=== PATIENT | female | born 1985 | race Caucasian/White ===

== ENCOUNTER 2020-11-17 10:26 | Outpatient (REF) | payer BC, SELFPAY ==
--- NOTE | 2020-11-18 12:18 | MHC.AU.P13 ---
Adult Audiological Evaluation Date of Visit: 11/17/20 Supervisor Lime Used: Not Applicable Reason for Appointment: Audiologic re-evaluation to determine possible change in hearing ability. Question of problem with hearing aids vs. decreased hearing. Current wax guard rings for both hearing aids are coming off. Previous Hearing Test Results: 07/10/2019 [facility] Asymmetric borderline normal hearing at 250 Hz dropping to profound high frequency sensorineural hearing loss with the right ear being poorer than the left. Speech understanding was 64% for the right ear and 84% for the left ear. Ear History: History of Hearing Loss since childhood Medical History: Medical History: Unremarkable Medical History Hearing Instrument History- Right Ear: Adult Care Manager: Phonak Model: Virto V 90-10 canal Serial Number: [id number] Battery Size: 10 Repair Warranty: Loss and Damage Warranty: Dispensed By: [facility] Date of Fittin09/07/2015 Hearing Instrument History- Left Ear: Adult Care Manager: Phonak Model: Virto V 90-10 canal Serial Number: [id number] Battery Size: 10 Warranty: Loss and Damage Warranty: Dispensed By: [facility] Date of Fittin09/07/2015 Otoscopy: Right Ear: Unremarkable Left Ear: Unremarkable Tympanometry: Right Ear: Not performed at today's visit Left Ear: Not performed at today's visit Hearing Evaluation: Transducer(s) Used: Insert Earphones Bone Conduction Method: Conventional Audiometry Stimuli Used: Pure Tones Right Ear: Description of Hearing: Borderline normal at 250 Hz precipitously dropping to a profound high frequency sensorineural hearing loss Left Ear: Description of Hearing: Normal hearing threshold at 250 Hz dropping to a profound high frequency sensorineural hearing loss Speech Recognition Threshold (SRT): Method Used: Monitored Live Voice Stimuli Used: Spondee Words Right Ear: 30 dB HL Left Ear: 30 dB HL Word Discrimination: Method: Recorded Lists Word Lists Used: NU-6 Right Ear: 36% at 75 dB HL (most comfortable listening level) 68% at 80 dB HL. Left Ear: 80% at 70 dB HL Most Comfortable Level (MCL): Right Ear: 75 dB HL Left Ear: 70 dB HL Comparison: Compared to most recent evaluation: Left ear thresholds are stable with the right ear levels showing a 10 dB decrease at 1030-0039 Hz Recommendations: Audiological re-evaluation in one year. Trial with new amplification is recommended. Medical clearance from a physician is required before fitting. Patient plans to contact [facility]. See Hearing Aid Follow-Up note for more information. 1) Hearing aids were reprogrammed to today's test results with Dayan noting improved sound quality while in office. 2) Given the gradually decreasing speech understanding, particularly for the right ear, recommend Dayan contact the [facility] ([facility]) and reapply for services for new hearing aids. A quote will be sent [facility]. Diagnosis: Primary Diagnosis: H90.3 Bilateral Sensorineural Hearing Loss Services Performed: Comprehensive Audiological Evaluation (CPT 52529) Signature: Provider: Syed Murillo, CCC-A
--- NOTE | 2020-11-18 12:21 | MHC.AU.MED ---
Medical Clearance for Hearing Instrumentation Date: 11/18/20 Patient Name: Dayan Martinez Date of : 1985 Primary Care Provider: Referring Provider: Shree Loyola We have seen your patient on 11/18/20 and have determined that they are a candidate for amplification (See accompanying report). Specifically, they would benefit from: Hearing aid use in both ears There is a statute that addresses Medical Evaluation Requirements prior to fitting a patient with a hearing aid. According to [place] statute [facility] CMR:6.03(1), (a) General. Except as provided in 265 CMR 6.03(1)(b), a disability hearing officer shall not sell a hearing aid unless the prospective user has presented to the disability hearing officer a written statement signed by a licensed physician that states that the patient's hearing loss has been medically evaluated and the patient may be considered a candidate for a hearing aid. The medical evaluation must have taken place within the preceding six months. Please note: Due to the [place] Statute referenced above, we cannot accept a signature other than that of a licensed physician. CAFETERIA COUNTER ATTENDANT and PA signatures cannot be accepted. I am in agreement with the above recommendation. There is no medical contraindication for hearing instrumentation. Physician Signature Date Physician Name (Printed)
--- NOTE | 2020-11-18 12:28 | MHC.AU.P13 ---
Hearing Instrument Follow-Up- Binaural Date of Visit: 11/17/20 Production Solderer Used: Not Applicable Right Ear: Excavation Laborer: Phonak Model: Virto V 90-10 canal Serial Number: [id number] Repair Warranty: Loss and Damage Warranty: Battery Size: 10 Color: pink Type of Wax Guard: CeruStop Left Ear: Excavation Laborer: Phonak Model: Virto V 90-10 canal Serial Number: [id number] RepairWarranty: Loss and Damage Warranty: Battery Size: 10 Color: pink Type of Wax Guard: CeruStop Follow-Up Summary: Hearing aids cleaned. Wax guard rings on both aids come off every time patient changes guards. Will stay on without falling out and into patient's ears. Cleaned receivers and microphones and placed new wax guards. Both amplifying well. Decided not to send aids in for repair as patient will contact [facility] to see if eligible for new aids. Reprogrammed both aids to today's test results with patient reporting improved sound quality while in office. Took impressions of both ears without complication. In HOLD drawer. Discussed hearing aid options and will send quote to [facility] for binaural Roderick Jarvis 1600 ITC-Rrechargeable. Patient will contact office after contacting [facility]. Recommendations: Recommendations: Hearing instrument follow-up or maintenance as needed. Please contact our clinic with any questions or concerns. Diagnosis Code(s): Primary Diagnosis: H90.3 Bilateral Sensorineural Hearing Loss Services Performed: [facility] Non-Quantity Charges: HANC: NonBillable Event Signature: Provider: Syed Murillo, CCC-A
== END 2020-11-17 10:27 | disposition home or self-care (01) ==
LOC: HO.SH 10:26
PROVIDERS: Visit Provider Hospitalist
DX: H90.3 Sensorineural hearing loss, bilateral (principal)
CPT/HCPCS: 92557

== ENCOUNTER 2021-07-04 11:17 | Outpatient (REF) | payer SELFPAY | END 2021-07-04 11:18 | disposition home or self-care (01) | LOC: HO.HAP 11:17 | PROVIDERS: Visit Provider Hospitalist | DX: Z13.89 Encounter for screening for other disorder (principal) ==

== ENCOUNTER 2021-12-19 09:31 | Outpatient (REF) | payer BC, SELFPAY ==
--- NOTE | 2021-12-19 14:22 | MHC.AU.AHA ---
Adult Audiological Evaluation Date of Visit: 12/19/21 Reason for Appointment: Dayan was seen for an annual audiological re-evaluation to monitor the status of her hearing loss. She reports no perceived change in hearing or general change in medical history. She stated that she changes the wax guards on the devices monthly, however, she was unable to change the left was guard recently due to it being stuck in the hearing aid. The patient stated she enjoys the sound quality and fit of the devices, and she especially enjoys using the hearing aids on the telephone. Previous Hearing [place] [facility] [place] Normal hearing for both ears at 250 Hz dropping to an asymmetric severe to profound high frequency sensorineural hearing loss with the right ear being 10-25 dB poorer than the left at 500-6000 Hz. Medical History: Medical History: Unremarkable Medical History Hearing Instrument History- Right Ear: Spindle Tester: CloudTran Model: Nimble Storage 1600 ITC-R Serial Number: [id number] Battery Size: Rechargeable Repair Warranty: 06/26/2024 Loss and Damage Warranty: 06/26/2024 Dispensed By: [facility] Date of Fittin06/07/2021 Hearing Instrument History- Left Ear: Spindle Tester: CloudTran Model: Nimble Storage 1600 ITC-R Serial Number: [id number] Battery Size: Rechargeable Warranty: 06/26/2024 Loss and Damage Warranty: 06/26/2024 Dispensed By: [facility] Date of Fittin06/07/2021 Otoscopy: Right Ear: Unremarkable Left Ear: Unremarkable Tympanometry: Tympanometry performed due to: To assess integrity of the middle ear system Right Ear: Normal Middle Ear System (Type A) Left Ear: Hypercompliant Middle Ear System (Type Ad) Hearing Evaluation: Transducer(s) Used: Insert Earphones, Bone Conduction Method: Conventional Audiometry Stimuli Used: Pure Tones Right Ear: Description of Hearing: Normal hearing at 250 Hz sloping to a mild to profound sensorineural hearing loss through 8000 Hz. A 15 dB HL asymetry is noted at 500, 1500, and 2000 Hz, with the right ear worse than the left. Left Ear: Description of Hearing: Normal hearing at 250 Hz sloping to a mild to profound sensorineural hearing loss through 8000 Hz. Speech Recognition Threshold (SRT): Method Used: Monitored Live Voice Stimuli Used: Spondee Words Right Ear: 35 dB HL Left Ear: 25 dB HL Word Discrimination: Method: Monitored Live Voice Word Lists Used: NU-6 Right Ear: 64% at 85 dB HL Left Ear: 80% at 80 dB HL Comparison: Compared to the most recent evaluation: Hearing is stable. Compared to most recent evaluation: Known asymmetrical thresholds and word recognition has remained stable from previous testing.\ Recommendations: Patient should return in one year for a re-evaluation to monitor the status of her hearing loss. Patient should continue consistent use of amplification and return as needed for hearing aid maintenance. Hearing aids were cleaned and biologic listening check revealed the devices were in good working order. Diagnosis: Primary Diagnosis: H90.3 Bilateral Sensorineural Hearing Loss Services Performed: Comprehensive Audiological Evaluation (CPT 57149) Tympanometry (CPT 33052) Signature: Student/Clinical Fellow: Yes: Dayan Mittal B.A., Syed Hand Former I have reviewed/agreed with student/fellow documentation: Yes Provider: Syed Grey, [facility]
== END 2021-12-19 09:32 | disposition home or self-care (01) ==
LOC: HO.SH 09:31
PROVIDERS: Visit Provider Nurse Practitioner Family
DX: Z01.118 Encounter for examination of ears and hearing with other abnormal findings (principal); H90.3 Sensorineural hearing loss, bilateral
CPT/HCPCS: 92557; 92567

== ENCOUNTER 2023-04-08 08:24 | Outpatient (REF) | payer BC, SELFPAY | END 2023-04-08 08:25 | disposition home or self-care (01) | LOC: HO.SH 08:24 | PROVIDERS: Visit Provider Nurse Practitioner Family | DX: Z01.118 Encounter for examination of ears and hearing with other abnormal findings (principal); H90.3 Sensorineural hearing loss, bilateral | CPT/HCPCS: 92557; 92567 ==

== ENCOUNTER 2023-10-23 08:25 | Outpatient (REF) | payer SELFPAY ==
--- NOTE | 2023-10-23 10:08 | MHC.AU.HA3 ---
Hearing Instrument Follow-Up- Binaural Date of Visit: 10/23/23 Right Ear: Osmany, Model, Color, Serial Number: Roderick Conley 1600 ITC-R #[id number] Radio Message Router Repair Warranty: 06/26/2024 Radio Message Router Loss and Damage Warranty: 06/26/2024 [facility] Service Plan: 06/26/2024 Battery Size: Rechargeable Storage Manager/Slim Tube: Earmold/Dome/CShell/SlimTip: Type of Wax Guard: Hear Clear Dispensed By: [facility] Date of Fittin06/07/2021 Left Ear: Osmany, Model, Color, Serial Number: Roderick Conley 1600 ITC-R #[id number] Radio Message Router Repair Warranty: 06/26/2024 Radio Message Router Loss and Damage Warranty: 06/26/2024 [facility] Service Plan: 06/26/2024 Battery Size: Rechargeable Storage Manager/Slim Tube: Earmold/Dome/CShell/SlimTip: Type of Wax Guard: Hear Clear Dispensed By: [facility] Date of Fittin06/07/2021 Follow-Up Summary: Reports the right hearing aid does not charge fully overnight and drains rapidly throughout the day. Cleaned and checked both aids, listening check positive. Checked settings and found left to be charged at 96% and the right at 63%, after one hour of wear per patient. Advised that right should be sent to ssrs developer for repair. Patient leaves with her left aid today, reports she will wear an old aid as back up on the right in the meantime. Recommendations: Recommendations: Patient to be called when aid is back from repair. Diagnosis Code(s): Primary Diagnosis: H90.3 Bilateral Sensorineural Hearing Loss Signature: Provider: Victorino Lugo, CCC-A
== END 2023-10-23 08:26 | disposition home or self-care (01) ==
LOC: HO.HAP 08:25
PROVIDERS: Visit Provider Hospitalist
DX: Z13.89 Encounter for screening for other disorder (principal)

== ENCOUNTER 2023-11-06 12:39 | Outpatient (REF) | payer SELFPAY | END 2023-11-06 12:40 | disposition home or self-care (01) | LOC: HO.HAP 12:39 | PROVIDERS: Visit Provider Hospitalist | DX: Z13.89 Encounter for screening for other disorder (principal) ==

== ENCOUNTER 2024-09-07 09:31 | Outpatient (REF) | payer SELFPAY ==
--- NOTE | 2024-09-07 16:03 | MHC.AU.HA3 ---
Hearing Instrument Follow-Up- Binaural Date of Visit: 09/07/24 Right Ear: Osmany, , Color, Serial Number: Roderick Conley 1600 ITC-R #[id number] Lye Treater Repair Warranty: 06/26/2024 Lye Treater Loss and Damage Warranty: 06/26/2024 [facility] Service Plan: 06/26/2024 Battery Size: Rechargeable Gun Striper/Slim Tube: Earmold/Dome/CShell/SlimTip: Type of Wax Guard: Hear Clear Dispensed By: [facility] Date of Fittin06/07/2021 Left Ear: Osmany, Model, Color, Serial Number: Roderick Conley 1600 ITC-R #[id number] Lye Treater Repair Warranty: 06/26/2024 Lye Treater Loss and Damage Warranty: 06/26/2024 [facility] Service Plan: 06/26/2024 Battery Size: Rechargeable Gun Striper/Slim Tube: Earmold/Dome/CShell/SlimTip: Type of Wax Guard: Hear Clear Dispensed By: [facility] Date of Fittin06/07/2021 Follow-Up Summary: Both aids and chair pad maker dropped off. Complaint of right not working, left not holding charge. Cleaned aids. Wax noted in both wax guards. Replaced wax guard and angélica covers. Listening check positive Right. Put aids on chair pad maker and left never fully charged. Spoke w/ Dayan who reports it only lasts about an hour after charging over night. Sending left to [facility] quote $330. Pt. to worm picker right aid and chair pad maker to have while waiting on left. Recommendations: Recommendations: Patient will be contacted when materials have arrived. Diagnosis Code(s): Primary Diagnosis: H90.3 Bilateral Sensorineural Hearing Loss Signature: Provider: Victorino Liu, [facility]
== END 2024-09-07 09:32 | disposition home or self-care (01) ==
LOC: HO.HAP 09:31
PROVIDERS: Visit Provider Hospitalist
DX: Z13.89 Encounter for screening for other disorder (principal)

== ENCOUNTER 2024-09-11 09:05 | Outpatient (REF) | payer SELFPAY | END 2024-09-11 09:06 | disposition home or self-care (01) | LOC: HO.HAP 09:05 | PROVIDERS: Visit Provider Hospitalist | DX: Z13.89 Encounter for screening for other disorder (principal) ==

== ENCOUNTER 2024-09-23 09:54 | Outpatient (REF) | payer SELFPAY | END 2024-09-23 09:55 | disposition home or self-care (01) | LOC: HO.HAP 09:54 | PROVIDERS: Visit Provider Hospitalist | DX: Z46.1 Encounter for fitting and adjustment of hearing aid (principal); H90.3 Sensorineural hearing loss, bilateral | CPT/HCPCS: V5014 ==